=== PATIENT | male | born 1985 | race Hispanic/Latino ===

== ENCOUNTER 2017-03-14 12:35 | Emergency (ER) | payer OTHER ==
[~2017-03-14] VITALS: Ht 172.7 cm; Wt 73.0 kg
[~2017-03-14 12:35] MED LIST: ULTRAM50 M1 PO
[2017-03-14] MEDS ORDERED: BENADRYL 50MG C50 MG PO (13:15)
[2017-03-14] MEDS ORDERED: KEFLEX500 MG PO (13:15)
[2017-03-14] MEDS ORDERED: PREDNISONE50 MG PO (13:15)
[2017-03-14] MEDS ORDERED: CIMETIDINE400 M1 PO (13:15)
[2017-03-14 13:29] VITALS: BP 138/96
== END 2017-03-14 13:50 | disposition home or self-care (01) | DRG 607 ==
LOC: ED 12:35
DX: R21 Rash and other nonspecific skin eruption (principal)